=== PATIENT | female | born 1965 | race Caucasian/White ===

== ENCOUNTER → 2018-11-04 | Outpatient (CLI) | payer OTHER | LOC: M.ULTRA 13:09 | DX: M79.661 Pain in right lower leg (principal); Z88.1 Allergy status to other antibiotic agents; Z88.5 Allergy status to narcotic agent; Z88.0 Allergy status to penicillin; Z88.8 Allergy status to other drugs, medicaments and biological substances ==

== ENCOUNTER → 2021-04-04 | Outpatient (CLI) | payer OTHER | LOC: M.ULTRA 11:30 | PROVIDERS: ATTEND Family Medicine | DX: M79.604 Pain in right leg (principal) ==